=== PATIENT | male | born 1940 | race Caucasian/White ===

== ENCOUNTER → 2017-04-12 | Day surgery (SDC) | payer OTHER ==
[~2017-04-12] MED LIST: ALLOPURINOL300 MG PO; ATORVASTATIN CA10 MG PO; AUGMENTIN1 TAB.SR1 PO; BENICAR PO; CERUMENEX AS; COLCHICINE0.6 M1 PO; DISCONTINUED MED XX; GLUCOPHAGE500 M1 PO; HYDROCODON-ACE1 EACH PO; HYZAAR 50-12.51 TAB PO; KEFLEX500 MG PO; LASIX PO; LOSARTAN POTASS50 MG PO; NORVASC PO; OMEPRAZOLE20 M2 PO; OMEPRAZOLE40 M1 PO; PERCOCET5/325 PO; PREDNISONE5 M1 PO; PREVACID PO; PRILOSEC PO; PRILOSEC20 M1 PO; TYLOX 5-500 CA1 EACH PO; XANAX0.5 MG PO; ZYLOPRIM PO
--- NOTE | ~2017-04-12 | OR ---
Unit #: [id number] #: [id number] Patient: LEW SQUIRES [id number] [address] [place], [place] [address] [id number] MR#: [id number] NAME: LEW SQUIRES ROOM: Date of Procedure: 04/12/2017 Admission Date: 04/12/2017 Surgeon: Too Jones M.D. : 1940 Attending Physician: Too Jones M.D. Primary Care Physician: Renny Lazaro M.D. OPERATIVE REPORT PREOPERATIVE DIAGNOSIS Change in bowel habits. POSTOPERATIVE DIAGNOSIS Change in bowel habits. PROCEDURES PERFORMED 1. Esophagogastroduodenoscopy. 2. Biopsy of antrum for Helicobacter pylori testing. 3. Colonoscopy to cecum. ANESTHESIA Monitored anesthesia care. FINDINGS The patient was found on upper endoscopy to have a small hiatal hernia as well as moderate gastritis and a mild Schatzki's ring. On colonoscopy, the patient was found to have sigmoid diverticula as well as a thrombosed external hemorrhoid and mild internal hemorrhoids. SPECIMENS Sent to pathology. COMPLICATIONS None apparent. CONDITION The patient tolerated the procedure well. INDICATIONS FOR PROCEDURE The patient is a 76-year-old white male, who presents at this time for evaluation for change in bowel habits. DESCRIPTION OF PROCEDURE After obtaining informed consent, the patient was brought to the endoscopy suite and after adequate monitored anesthesia care, had the endoscope placed through the mouth into the upper esophagus under direct vision. It was advanced to the second portion of the duodenum without difficulty with the lumen always in view. The duodenum was normal in the second and third portion as well as the duodenal bulb. The pylorus opened normally. There was some moderate gastritis present distally in the stomach. A biopsy was obtained for Helicobacter pylori testing. On retroflexion back to the GE Unit #: [id number] #: [id number] Patient: LEW SQUIRES junction, the patient was found to have a small hiatal hernia. There was no abnormality seen in the proximal third, middle third, or incisura. On pulling back above the GE junction, there was no stenosis, stricture, or neoplasm seen, but there was some mild Schatzki's ring. The remaining portion of the esophagus was within normal limits. Laryngeal structures were grossly normal as viewed from above. At this point, the patient had digital examination performed of the rectum. There was good sphincter tone and there was a palpable thrombosed external hemorrhoid. The colonoscope was placed through the anus and advanced to the level of the cecum without difficulty with the lumen always in view. The cecum was normal as was the ileocecal valve, ascending colon, hepatic flexure, transverse colon, splenic flexure, and descending colon. The sigmoid colon had some scattered diverticula present. The rectosigmoid and rectum were all within normal limits. On retroflexing in the rectum to the anorectal junction, there were some mild internal hemorrhoids. The scope was removed without difficulty. The patient tolerated the procedure well and went from the endoscopy suite to recovery area in stable condition. RECOMMENDATIONS Diverticular sheet given. Gastroesophageal reflux sheet given. High-fiber diet, lots of liquids, tucks or wipes p.r.n. Prescription for omeprazole 40 mg p.o. daily. Call Sunday for pathology report. Dictated by... Elvia Jones/osiel TD: 04/13/2017 04:51 JOB #: [id number] CC: [facility] OPERATIVE REPORT Page 1 of 1 X Too Jones MD X PROCEDURE OPERATIVE NOTE
== END | disposition home or self-care (01) ==
LOC: COPS 11:21
DX: K44.9 Diaphragmatic hernia without obstruction or gangrene (principal); K29.70 Gastritis, unspecified, without bleeding; K22.2 Esophageal obstruction; K57.30 Diverticulosis of large intestine without perforation or abscess without bleeding; K64.5 Perianal venous thrombosis; K64.8 Other hemorrhoids; K21.9 Gastro-esophageal reflux disease without esophagitis; Z86.010 Personal history of colon polyps; I10 Essential (primary) hypertension; M10.9 Gout, unspecified; G47.30 Sleep apnea, unspecified
CPT/HCPCS: 87077; J2250